=== PATIENT | female | born 1985 | race Caucasian/White ===

== ENCOUNTER 2017-08-06 17:37 | Emergency (ER) | payer SELFPAY ==
[2017-08-06 18:09] VITALS: BP 140/89; BMI 29.0
== END 2017-08-06 17:46 | disposition left against medical advice (07) ==
LOC: ER 17:38
DX: R10.84 Generalized abdominal pain (principal); O26.859 Spotting complicating pregnancy, unspecified trimester; Z3A.27 27 weeks gestation of pregnancy
CPT/HCPCS: 99281